=== PATIENT | male | born 1945 | race Caucasian/White ===

== ENCOUNTER 2018-02-21 00:47 | Outpatient (CLI) | payer MEDICARE, BC, SELFPAY ==
--- NOTE | 2018-02-21 14:15 | MERGE_ITS ---
*[facility]* *[facility]* [address] [place] [address] Date of study: 02/21/2018 Transthoracic Echocardiography M-mode, complete 2D, complete spectral Doppler, and color Doppler *STUDY CONCLUSIONS* Summary: 1. Left ventricle: The cavity size was normal. There was mild focal basal hypertrophy of the septum. Systolic function was normal. The estimated ejection fraction was 55-60%. Wall motion was normal; there were no regional wall motion abnormalities. 2. Aortic valve: There was mild regurgitation. 3. Aortic root: The aortic root was mildly dilated. 4. Ascending aorta: The ascending aorta was at upper normal limits. 5. Mitral valve: There was mild regurgitation. 6. Right ventricle: The cavity size was normal. Wall thickness was normal. Systolic function was normal. 7. Atrial septum: There was increased thickness of the septum, consistent with lipomatous hypertrophy. 8. Pulmonary arteries: Pulmonary systolic pressure was at the upper limits of normal. PA peak pressure: 34mm Hg (S). *PATIENT PRESENTATION* Height: 175.3cm ((69in) ) S/D Pressure: 148 / 86 Weight: 113.4kg ((249.5lb) ) BSA: 2.4m^2 Test start time: 02:30 PM. Test stop time: 03:36 PM. ORDERING Rajeev Whitaker REFERRING Rajeev Whitaker PERFORMING Unknown PERFORMING [facility] [employer] MANAGER RT lCifford FloresR)(MANUELITO)ADAM *PROCEDURE DATA* Procedure information: This study was interpreted by [facility]. Pertinent images and digital data are archived for permanent storage and are available for subsequent review. No prior study was available for comparison. Study status: Routine. Transthoracic echocardiography. M-mode, complete 2D, complete spectral Doppler, and color Doppler. A Transthoracic Echocardiogram was performed. Scanning was performed from the parasternal, apical, subcostal, and suprasternal notch acoustic windows. Images were obtained using an [id number] cardiac ultrasound machine. Image quality was fair. Study completion: The patient tolerated the procedure well. History: PMH: Chest pressure. *CARDIAC ANATOMY* Left ventricle: The cavity size was normal. There was mild focal basal hypertrophy of the septum. Systolic function was normal. The estimated ejection fraction was 55-60%. Wall motion was normal; there were no regional wall motion abnormalities. Aortic valve: Trileaflet; mildly thickened leaflets. Mobility was not restricted. Doppler: Transvalvular velocity was within the normal range. There was no stenosis. There was mild regurgitation. VTI ratio of LVOT to aortic valve: 0.78. Valve area (VTI): 3.2cm^2. Indexed valve area (VTI): 1.3cm^2/m^2. Peak velocity ratio of LVOT to aortic valve: 0.83. Valve area (Vmax): 3.4cm^2. Indexed valve area (Vmax): 1.4cm^2/m^2. Mean velocity ratio of LVOT to aortic valve: 0.76. Valve area (Vmean): 3.1cm^2. Indexed valve area (Vmean): 1.3cm^2/m^2. Mean gradient (S): 3.3mm Hg. Peak gradient (S): 5.5mm Hg. Aorta: Aortic root: The aortic root was mildly dilated. Ascending aorta: The ascending aorta was at upper normal limits. Mitral valve: Mildly thickened leaflets. Mobility was not restricted. Doppler: Transvalvular velocity was within the normal range. There was no evidence for stenosis. There was mild regurgitation. Valve area by pressure half-time: 3.9cm^2. Indexed valve area by pressure half-time: 1.6cm^2/m^2. Peak gradient (D): 2.9mm Hg. Left atrium: The atrium was normal in size. Atrial septum: There was increased thickness of the septum, consistent with lipomatous hypertrophy. Right ventricle: The cavity size was normal. Wall thickness was normal. Systolic function was normal. Pulmonic valve: Poorly visualized. Doppler: Transvalvular velocity was within the normal range. There was no evidence for stenosis. There was mild regurgitation. Peak gradient (S): 6.7mm Hg. Tricuspid valve: Structurally normal valve. Doppler: Transvalvular velocity was within the normal range. There was no evidence for stenosis. There was mild regurgitation. Pulmonary artery: Poorly visualized. Pulmonary systolic pressure was at the upper limits of normal. Right atrium: The atrium was normal in size. Pericardium: There was no pericardial effusion. Systemic veins: Inferior vena cava: Well visualized. The vessel was patent and mildly dilated in size. The respirophasic diameter changes were in the normal range (greater than or equal to 50%), consistent with normal central venous pressure. Baseline ECG: Normal sinus rhythm. Measurements Left ventricle Value Reference LV ID, ED, PLAX 5.8 cm 3.5 - 6.0 LV ID, ES, PLAX 3.4 cm 2.1 - 4.0 LV PW thickness, ED, PLAX 1.0 cm LV end-diastolic volume, 1-p A2C 63 ml LV ejection fraction, 1-p A2C 54 % LV end-diastolic volume, 1-p A4C 108 ml LV ejection fraction, 1-p A4C 59 % LV e', lateral 0.073 m/sec LV E/e', lateral 12 LV e', medial 0.072 m/sec LV E/e', medial 12 LV e', average 0.073 m/sec LV E/e', average 12 Ventricular septum Value Reference IVS thickness, ED, PLAX 0.8 cm LVOT Value Reference LVOT ID, A-P 2.3 cm LVOT area 4.1 cm^2 LVOT peak velocity, S 0.97 m/sec LVOT mean velocity, S 0.66 m/sec LVOT VTI, S 20.6 cm LVOT peak gradient, S 3.8 mm Hg LVOT mean gradient, S 2 mm Hg Stroke volume (SV), LVOT DP 84 ml Stroke index (SV/bsa), LVOT DP 35 ml/m^2 Aortic valve Value Reference Aortic valve peak velocity, S 1.2 m/sec Aortic valve mean velocity, S 0.87 m/sec Aortic valve VTI, S 26.5 cm Aortic mean gradient, S 3.3 mm Hg Aortic peak gradient, S 5.5 mm Hg VTI ratio, LVOT/AV 0.78 Aortic valve area, VTI 3.2 cm^2 Velocity ratio, peak, LVOT/AV 0.83 Aortic valve area, peak velocity 3.4 cm^2 Velocity ratio, mean, LVOT/AV 0.76 Aortic valve area, mean velocity 3.1 cm^2 Aortic valve area/bsa, mean velocity 1.3 cm^2/m^2 Aorta Value Reference Aortic root ID, ED 4.0 cm Ascending aorta ID, A-P, S 3.9 cm RVOT Value Reference RVOT VTI, S 16.0 cm Left atrium Value Reference LA ID, A-P, ES 3.3 cm LA ID/bsa, A-P 1.4 cm/m^2 <=2.2 LA area, ES, A4C 19.9 cm^2 8.8 - 23.4 LA area, ES, A2C 20 cm^2 LA volume/bsa, ES, 1-p A4C 29 ml/m^2 LA volume, ES, 2-p 61 ml LA volume/bsa, ES, 2-p 26 ml/m^2 LA/aortic root ratio 0.82 Mitral valve Value Reference Mitral E-wave peak velocity 0.85 m/sec Mitral A-wave peak velocity 1.01 m/sec Mitral deceleration time 193 ms 150 - 230 Mitral pressure half-time 56 ms Mitral peak gradient, D 2.9 mm Hg Mitral E/A ratio, peak 0.84 Mitral valve area, PHT, DP 3.9 cm^2 Pulmonary veins Value Reference Pulmonary vein peak velocity, S 0.52 m/sec Pulmonary vein peak velocity, D 0.36 m/sec Pulmonary vein velocity ratio, peak, 1.45 S/D Pulmonary vein A-wave reversal peak 0.35 m/sec velocity Pulmonary arteries Value Reference PA pressure, S, DP (H) 34 mm Hg <=30 Tricuspid valve Value Reference Tricuspid regurg peak velocity 2.8 m/sec Tricuspid peak RV-RA gradient 30.5 mm Hg Right atrium Value Reference RA area, ES, A4C 19.5 cm^2 8.3 - 19.5 Systemic veins Value Reference Estimated CVP 10 mm Hg Right ventricle Value Reference RV pressure, S, DP (H) 41 mm Hg <=30 Pulmonic valve Value Reference Pulmonic peak gradient, S 6.7 mm Hg Legend: (L) and (H) tai values outside specified reference range. I have personally reviewed the images and have reviewed and edited the reported findings. Electronically signed by Dodie Anderson 02/22/2018 09:18
== END 2018-02-21 01:07 ==
PROVIDERS: PCP Nurse Practitioner Adult Health; Visit Provider Family Medicine
DX: R07.9 Chest pain, unspecified (principal); I08.0 Rheumatic disorders of both mitral and aortic valves
CPT/HCPCS: 93306

== ENCOUNTER 2018-02-23 00:17 | Outpatient (CLI) | payer MEDICARE, BC, SELFPAY ==
--- NOTE | 2018-02-23 08:30 | ETT_ITS ---
*[facility]* *[facility]* [address] [place] [address] Stress Electrocardiography Shad protocol Date of study: 02/23/2018 *PATIENT PRESENTATION* Height: 175.3cm (69in) Blood Pressure: Weight: 113.6kg (250lb) BSA: 2.4m^2 Ordering physician: Rajeev Whitaker Impressions: Negative stress test after maximal exercise. Summary: 1. Stress ECG conclusions: The stress ECG is negative. A few PAC's and PVC's in recovery. 2. Stress: The target heart rate was achieved. The heart rate response to stress is normal. There is resting hypertension with an appropriate response to stress. The patient experienced no chest pain during stress. Exercise capacity is reduced (4.7 METS). Indication: R07.89. History: REASON FOR VISIT: PRE-SURGICAL SCREENING. FOR PLANNED KNEE SURGURY. PT REPORTS EXPERIENCING EPISODES OF CHEST PRESSURE ASSOCIATED WITH HEART RACING. HIS LAST EPISODE WAS ONE MONTH AGO. Risk factors: FORMER SMOKER. QUIT OVER 40 YEARS AGO. Obesity. ALLERGIES: NO KNOWN ALLERGIES. MEDICATIONS: CELEBREX 200 MG PO DAILY PRN. PREVASID 1 DAILY PRN. Protocol: Shad protocol. Baseline ECG: SINUS RHYTHM. Normal ECG. Stress protocol: + +---+ + !Stage !HR !BP (mmHg) ! + +---+ + !Baseline supine !76 !132/100 (111)! + +---+ + !Baseline standing !77 !136/80 (99) ! + +---+ + !Stage I; 1.7mph, 10degrees; 3 min!128!160/102 (121)! + +---+ + !Peak stress !129! ! + +---+ + !Immediate post stress !103!166/104 (125)! + +---+ + !Recovery; 3 min !78 !144/86 (105) ! + +---+ + !Recovery; 6 min !69 !144/82 (103) ! + +---+ + * Stress results: Maximal heart rate during stress was 129bpm (87% of maximal predicted heart rate). The maximal predicted heart rate was 148bpm. The target heart rate was achieved. The heart rate response to stress is normal. There is resting hypertension with an appropriate response to stress. The rate-pressure product for the peak heart rate and blood pressure was 76673as Hg/min. The patient experienced no chest pain during stress. Exercise capacity is reduced (4.7 METS). Stress ECG: TREADMILL PORTION OF STRESS TEST ENDED IN 3 MINUTES FOR PT'S SAFETY DUE NOTED LEG WEAKNESS. NORMAL HEART RATE AND BLOOD PRESSURE RESPONSE TO EXERCISE. MAX HR = 129 % OF TARGET = 87 3 PVC COUPLETS SEEN DURING IMMEDIATE RECOVERY FOLLOWED BY ONE 6 BEAT RUN OF PSVT. APPROXIMATE METS ACHIEVED PT DESCRIBED PAIN INBETWEEN SHOULDER BLADES UPON IMMEDIATE RECOVERY. PAIN RESOLVED BY 3 MINUTES RECOVERY TIME. NO SIGNIFICANT ST SEGMENT CHANGES MARKEDLY DIMINISHED FUNCTIONAL CAPACITY. The stress ECG is negative. A few PAC's and PVC's in recovery. Valenzuela treadmill score: 3. This score predicts a moderate risk of cardiac events. Study data: James Hill MD supervised and was readily available during the procedure. This study was interpreted by [facility]. Study status: Routine. Consent: The risks, benefits, and alternatives to the procedure were explained to the patient and informed consent was obtained. Procedure: Initial setup. A baseline ECG was recorded. Surface ECG leads and manual cuff blood pressure measurements were monitored. Heart sounds: Normal. Lung sounds: Normal. Treadmill exercise testing was performed using the Shad protocol. Study completion: The patient tolerated the procedure well and was discharged from the lab. Discharge: The patient left the laboratory in stable condition. Birthdate: Patient birthdate: 1945. Sex: Gender: male. Study date: Study date: 02/23/2018. Study time: 08:30 AM. Signature Documentation: The Stress ECG portion of this study was interpreted by James Hill MD. Electronically signed by James Hill 02/23/2018 10:22
== END 2018-02-23 00:37 ==
PROVIDERS: PCP Nurse Practitioner Adult Health; Visit Provider Family Medicine
DX: R07.89 Other chest pain (principal); Z01.810 Encounter for preprocedural cardiovascular examination
CPT/HCPCS: 93016; 93018; 93017